=== PATIENT | male | born 1965 | race Caucasian/White ===

== ENCOUNTER 2020-10-15 19:23 | Emergency (ER) | payer BC ==
[~2020-10-15] VITALS: Ht 185.4 cm; Wt 9.1 kg
[2020-10-15 19:33] VITALS: BP 124/69
[2020-10-15] MEDS ORDERED: DIPH25CA83 PO (20:14)
[2020-10-15] MEDS ORDERED: PRED10TA23 PO (20:14)
[2020-10-15] MEDS ORDERED: PRED20TA PO (20:24)
== END 2020-10-15 20:37 | disposition home or self-care (01) ==
LOC: ER 19:24
DX: L23.3 Allergic contact dermatitis due to drugs in contact with skin (principal); Z79.899 Other long term (current) drug therapy
CPT/HCPCS: 99283